=== PATIENT | male | born 1940 | race Caucasian/White ===

== ENCOUNTER → 2022-02-17 10:02 | Outpatient (CLI) | payer MEDICARE, OTHER, SELFPAY ==
--- NOTE | 2022-02-17 | DI.NM.S_ITS ---
PROCEDURE: NM BONE SCAN WHOLE BODY RADIOPHARMACEUTICAL: 20.2 mCi Tc-99m MDP IV. INDICATIONS: Acquired deformity of chest and rib TECHNIQUE: Delayed whole-body scintigrams were obtained approximately 3-4 hours after intravenous injection of radiotracer. Anterior and posterior views were acquired from vertex to feet. Additional left and right oblique views of the ribs were obtained. COMPARISON: Outside Film, CT, CT IVP, 03/15/2019, 13:37. FINDINGS: Physiologic uptake is noted within the kidneys and bladder. There is mild areas of increased uptake within the wrist and hands as well as small bones of the feet. Mild areas of uptake are noted within the knees. Minimal scattered areas of uptake are noted within the visualized cervical, thoracic and lumbar spine. IMPRESSION: Multifocal areas of uptake as described above most suggestive of degenerative change. Dictated by: Marilu Randall M.D. on 02/17/2022 at 17:05 Approved by: Marilu Randlal M.D. on 02/17/2022 at 17:07
== END ==
PROVIDERS: PCP Family Medicine; Referring Provider Family Medicine; Visit Provider Family Medicine
DX: M95.4 Acquired deformity of chest and rib (principal)
CPT/HCPCS: 78306; A9503